=== PATIENT | male | born 1995 | race Caucasian/White ===

== ENCOUNTER 2025-04-25 10:22 | Outpatient (OUT) | payer BC, SELFPAY ==
--- NOTE | 2025-04-25 10:31 | US_ITS ---
The [address] [address] Patient Name: GAVINO PAL MRN: [id number] date: 1995 Sex: M Assigned Patient Location: US Current Patient Location: US Accession/Order Number: [id number] Exam Date: 04/25/2025 11:12 Report Date: 04/25/2025 11:18 At the request of: VINCENZO HERNANDEZ MD Procedure: US thyroid THYROID ULTRASOUND CLINICAL DATA: Neck lumps and difficulty swallowing COMPARISON: None The right thyroid lobe measures 5.8 x 2.1 x 1.1 cm. The left lobe measures 4.4 x 2.1 x 1.5 cm. The isthmus measures 2 - 3 mm . There is normal echogenicity. No thyroid nodularity is seen. Real-time ultrasound evaluation at the site of patient's lumps on both sides was also performed superior to the thyroid and lateral to the trachea. On the left in close proximity, there are 2 hypoechoic nodules measuring 6 x 6 x 4 mm and 7 x 4 x 4 mm. On the right in a similar location, there is a hypoechoic nodule measuring 6 x 4 x 5 mm. There might be subtle fatty ivy and these may be lymph nodes. No other neck masses are seen. US/US thyroid IMPRESSION: NO SIGNIFICANT THYROID FINDINGS. SUBCENTIMETER HYPOECHOIC NODULES IN THE AREAS OF PALPABLE CONCERN, POSSIBLY SMALL LYMPH NODES. Impression dictated by: Vania Lee M.D. 04/25/2025 11:18 AM Dictation Location: [place] [address] Electronically authenticated by: [id number] Y Date: 04/25/2025 11:18
== END 2025-04-25 10:23 | disposition home or self-care (01) ==
LOC: US 10:26
PROVIDERS: PCP Family Medicine; Visit Provider Family Medicine
DX: R22.1 Localized swelling, mass and lump, neck (principal)
CPT/HCPCS: 76536

== ENCOUNTER 2025-05-08 10:11 | Outpatient (OUT) | payer BC, SELFPAY ==
--- NOTE | 2025-05-08 10:14 | CT_ITS ---
The [address] [address] Patient Name: GAVINO PAL MRN: [id number] date: 1995 Sex: M Assigned Patient Location: CT Current Patient Location: CT Accession/Order Number: [id number] Exam Date: 05/08/2025 10:52 Report Date: 05/08/2025 11:01 At the request of: VINCENZO HERNANDEZ MD Procedure: CT soft tissue neck w con CT SOFT TISSUE NECK WITH CONTRAST COMPARISON: Thyroid ultrasound 04/25/2025 CLINICAL DATA: Neck lumps and difficulty swallowing. Suspected small lymph nodes on ultrasound. Spiral images were obtained through the neck following 100 mL of Omnipaque 300. This CT exam was performed using one or more following dose reduction techniques: Automated exposure control, adjustment of the mA and/or kV according to patient size, or use of iterative reconstruction technique. No thyroid nodularity is seen. The submandibular and parotid glands appear symmetric. There is no significant enlargement of the adenoids or tonsils. The epiglottis and vocal cords are within normal limits. There is subtle asymmetry at the right supraglottic region which may be physiologic. There is no prevertebral soft tissue swelling. The airway is patent throughout its course with normal appearance of the mucosal surfaces. There are small scattered cervical lymph nodes. The largest node is seen in the jugulodigastric region on the left with short axis dimension of 9 mm . The cervical spine shows no significant abnormalities. Polypoid mucosal thickening is visualized at the basilar left maxillary sinus. The remaining paranasal sinuses and mastoid air cells are clear. The upper imaged lungs show no contributory findings. CT/CT soft tissue neck w con IMPRESSION: SHOTTY CERVICAL LYMPH NODES, LARGEST IN THE LEFT JUGULODIGASTRIC REGION, DESCRIBED. NO OTHER ACUTE NECK FINDINGS. Impression dictated by: Vania Lee M.D. 05/08/2025 11:01 AM Dictation Location: [place] [address] Electronically authenticated by: [id number] Y Date: 05/08/2025 11:01
== END 2025-05-08 10:12 | disposition home or self-care (01) ==
LOC: CT 10:11
PROVIDERS: PCP Family Medicine; Visit Provider Family Medicine
DX: R22.1 Localized swelling, mass and lump, neck (principal)
CPT/HCPCS: 70491; Q9967

== ENCOUNTER 2025-08-31 16:50 | Outpatient (OUT) | payer BC, SELFPAY ==
--- OUTSIDE RECORDS SUMMARY | 2024-11-29 03:03 | XMS_ITS | Continuity of Care Document ---
Author Organization [facility] Address [address] [place] [address] Phone Care Team Providers Care Appointment Setter Name Role Phone Isela Murillo DDS Unavailable Unavailable Allergies, Adverse Reactions, Alerts Substance Reaction Status Criticality clarithromycin Active No Informatio n doxycycline Active No Information Procedures Procedure Date Extract; Erupted Th/exposted Rt 025 Oral Hygiene Instruction Intraoral-periapical 1st Film Bitewig-single Film Nutrit Couns For Control Of [place] Dis Aug Limited Oral Eval Advance Directives Directive Yes / No Effective Date File Name No Information Encounters Encounter Description Practice Location Reason(s) For Visit Diagnoses Date Provider Providers Copied on Encounter [facility], [address] [place] [address], [id number], tel:[phone] Dental Clinic Well child HPI (chief complaint) Encounter for screening for dental disorders Chidi BENITEZ Isela. . tel:[phone] [facility], [address] [place] [address], [id number], tel:[phone] Dental Clinic ER (chief complaint) Encounter for screening for dental disorders Chidi BENITEZ Isela. . tel:[phone] Family History Family Member Type Diagnosis Age At Onset No Information Payers Payer name Insurance type Covered constitution party ID Authoriza tion(s) Self Pay Cap [id number] Social History Type Description Quantity Date Captured Comments Alcohol Use Details Unknown Caffeine Use Details Unknown Tobacco Use Status No Information Smoking Status No Information Sex Male Sexual Orientation Straight or heterosexual Apr Gender Identity Male Vital Signs Date / Time: Height Weight BMI Pulse Rate Blood Pressure Temperature Respiratory Rate Body Surface Area Head Circumference Head Circ. Percentile Wt./Enrique. Percentile BMI percentile Pulse Ox Inhaled Ox 8:22 AM 70.00 in 112.219 kg (247.40 lbs) 35.5 0 kg/m eter (2) 80 /min 119/76 mm[Hg] 97.20 F Chief Complaint And Reason For Visit From encounter dated '11/29/2024 08:03'. Well child HPI (chief complaint). Description: EXT Reason For Referral Reason For Referral No Information Plan Of Treatment Date Type Action Status Goal Depression screening. Due on due Goal PRAPARE ASSESSMENT. Due on F due Goal RLP. Due on due Goal Hepatitis C screening. Due o n due Goal Tdap Vaccine. Due on 2024 due Goal Tdap. Due on due Goal Influenza vaccine. Due on due Goal Unhealthy drug use screening . Due on due Goal Influenza vaccine. Due on No due Goal RLP. Due on due Goal Hepatitis C screening. Due o n due Goal Depression screening. Due on due Goal PRAPARE ASSESSMENT. Due on N due Goal Tdap. Due on due Goal Tdap Vaccine. Due on 2023 due Goal Unhealthy drug use screening . Due on due History Of Present Illness Encounter Date Complaint History Of Prese nt Illness Well child HPI EXT ER Functional Status Date Functional Assessmen t No Information Instructions Date Instruction Additional Infor mation No Information Assessments Type Assessment Date No Information Patient Care Teams Name Effective Dates (start - stop) Status Members No Information
--- OUTSIDE RECORDS SUMMARY | 2024-11-29 03:03 | XMS_ITS | Continuity of Care Document ---
Author Organization [facility] Address [address] [place] [address] Phone Care Team Providers Care Press Service Reader Name Role Phone Isela Murillo DDS Unavailable Unavailable Allergies, Adverse Reactions, Alerts Substance Reaction Status Criticality clarithromycin Active No Informatio n doxycycline Active No Information Procedures Procedure Date Extract; Erupted Th/exposted Rt 025 Oral Hygiene Instruction Intraoral-periapical 1st Film Bitewig-single Film Nutrit Couns For Control Of [place] Dis Aug Limited Oral Eval Advance Directives Directive Yes / No Effective Date File Name No Information Encounters Encounter Description Practice Location Reason(s) For Visit Diagnoses Date Provider Providers Copied on Encounter [facility], [address] [place] [address], [id number], tel:[phone] Dental Clinic Well child HPI (chief complaint) Encounter for screening for dental disorders Chidi BENITEZ Isela. . tel:[phone] [facility], [address] [place] [address], [id number], tel:[phone] Dental Clinic ER (chief complaint) Encounter for screening for dental disorders Chidi BENITEZ Isela. . tel:[phone] Family History Family Member Type Diagnosis Age At Onset No Information Payers Payer name Insurance type Covered democrat ID Authoriza tion(s) Self Pay Cap [id number] Social History Type Description Quantity Date Captured [...]
--- OUTSIDE RECORDS SUMMARY | 2025-08-30 16:26 | XMS_ITS | Patient Health Record ---
Author Organization The [facility] [place] Address [address] [place] [address] Care Team Providers Care Outboard Motor Assembler Name Role Phone Inder Hernandez Primary Care Provider Allergies Allergen (clinical drug ingredient) Drug/Non Drug Allergy documented on EMR Reaction Allergy Type Onset Date Status BiaxinunknownDrug AllergyActivedoxycyclineDoxycyclineanaphylaxisDrug Allergy Active Results Component Value Reference Range Notes CT soft tissue neck w con Reviewed date:05/08/2025 08:52:55 PM Interpretation: Performing Lab: Notes/Report: Source Facility: [place] [address] CT Scan Report Signed Patient: RON PORTILLO MR#: [id number] : 1995 Acct:[id number] Age/Sex: 29 / M ADM Date: 05/08/25 Loc: CT Attending Dr: Malick Hernandez M.D. Ordering Physician: Malick Hernandez M.D. Date of Service: 05/08/25 Procedure(s): CT soft tissue neck w con Accession Number(s): [id number] cc: Malick Hernandez M.D. [place] [address] Patient Name: RON PORTILLO MRN: [id number] date: 1995 Sex: M Assigned Patient Location: CT Current Patient Location: CT Accession/Order Number: [id number] Exam Date: 05/08/2025 10:52 Report Date: 05/08/2025 11:01 At the request of: MALICK HERNANDEZ MD Procedure: CT soft tissue neck w con CT SOFT TISSUE NECK WITH CONTRAST COMPARISON: Thyroid ultrasound 04/25/2025 CLINICAL DATA: Neck lumps and difficulty swallowing. Suspected small lymph nodes on ultrasound. Spiral images were obtained through the neck following 100 mL of Omnipaque 300. This CT exam was performed using one or more following dose reduction techniques: Automated exposure control, adjustment of the mA and/or kV according to patient size, or use of iterative reconstruction technique. No thyroid nodularity is seen. The submandibular and parotid glands appear symmetric. There is no significant enlargement of the adenoids or tonsils. The epiglottis and vocal cords are within normal limits. There is subtle asymmetry at the right supraglottic region which may be physiologic. There is no prevertebral soft tissue swelling. The airway is patent throughout its course with normal appearance of the mucosal surfaces. There are small scattered cervical lymph nodes. The largest node is seen in the jugulodigastric region on the left with short axis dimension of 9 mm . The cervical spine shows no significant abnormalities. Polypoid mucosal thickening is visualized at the basilar left maxillary sinus. The remaining paranasal sinuses and mastoid air cells are clear. The upper imaged lungs show no contributory findings. CT/CT soft tissue neck w con IMPRESSION: SHOTTY CERVICAL LYMPH NODES, LARGEST IN THE LEFT JUGULODIGASTRIC REGION, DESCRIBED. NO OTHER ACUTE NECK FINDINGS. Impression dictated by: Vania Lee M.D. 05/08/2025 11:01 AM Dictation Location: [place] [address] Electronically authenticated by: [id number] Y Date: 05/08/2025 11:01 Dictated By: Vania Lee M.D. Signed By: 05/08/25 1103 DD/ 1101 TD/TT: Interactive Media Marketing Specialist: THYROID Reviewed date:04/25/2025 07:17:59 PM Interpretation: Performing Lab: Notes/Report: Source Facility: [facility]-[address] [place] [address] The [place] [id number] Ultrasound Report Signed Patient: RON PORTILLO MR#: [id number] : 1995 Acct:[id number] Age/Sex: 29 / M ADM Date: 04/25/25 Loc: US Attending Dr: Malick Hernandez M.D. Ordering Physician: Malick Hernandez M.D. Date of Service: 04/25/25 Procedure(s): US thyroid Accession Number(s): [id number] cc: Malick Hernandez M.D. [place] [address] Patient Name: RON PORTILLO MRN: [id number] date: 1995 Sex: M Assigned Patient Location: US Current Patient Location: US Accession/Order Number: [id number] Exam Date: 04/25/2025 11:12 Report Date: 04/25/2025 11:18 At the request of: MALICK HERNANDEZ MD Procedure: US thyroid THYROID ULTRASOUND CLINICAL DATA: Neck lumps and difficulty swallowing COMPARISON: None The right thyroid lobe measures 5.8 x 2.1 x 1.1 cm. The left lobe measures 4.4 x 2.1 x 1.5 cm. The isthmus measures 2 - 3 mm . There is normal echogenicity. No thyroid nodularity is seen. Real-time ultrasound evaluation at the site of patient's lumps on both sides was also performed superior to the thyroid and lateral to the trachea. On the left in close proximity, there are 2 hypoechoic nodules measuring 6 x 6 x 4 mm and 7 x 4 x 4 mm. On the right in a similar location, there is a hypoechoic nodule measuring 6 x 4 x 5 mm. There might be subtle fatty ivy and these may be lymph nodes. No other neck masses are seen. US/US thyroid IMPRESSION: NO SIGNIFICANT THYROID FINDINGS. SUBCENTIMETER HYPOECHOIC NODULES IN THE AREAS OF PALPABLE CONCERN, POSSIBLY SMALL LYMPH NODES. Impression dictated by: Vania Lee M.D. 04/25/2025 11:18 AM Dictation Location: [place] [address] Electronically authenticated by: [id number] Y Date: 04/25/2025 11:18 Dictated By: Vania Lee M.D. Signed By: 04/25/25 1120 DD/ 1118 TD/TT: Interactive Media Marketing Specialist: Reason For Referral No Information Medications Medication SIG (Take, Route, Frequency, Duration) Notes Start Date End Date Status Bactrim DS 800-160 MG 1 tablet Orally bid; Durat ion: 10 days 5ActivepredniSONE 20 MG2 tablets Orally Once a day; Duration: 5 days 5ActiveCefdinir 300 MG2 capsule Orally once a day; Duration: 10 days 5Active Social History Tobacco Use: Social History Observation Description Date Details (start date - stop date) Former Smoker 03/25/2012 - 01/23/2025 Tobacco Control (Standard) Question Answer Notes Tobacco use: Former smoker When did you start smoking?03/25/2012When did you stop smoking?01/23/2025UDIT-C (Standard) Question Answer Notes Did you have a drink containing alcohol in the p ast year? No Wyllfn9WpxdxkuzsivzuzPgdtutzh Problems Problem Type SNOMED Code ICD Code Onset Dates Problem Status W/U Status Risk Notes Problem Sleep apnea (92309037) Sleep apnea (G47.3 0) ActiveconfirmedProblemLeg pain (49985903)Leg pain (M79.606)Activeconfirmed ProblemCellulitis (353477380)Cellulitis (L03.90)ActiveconfirmedProblemMass of neck (712355075)Neck mass (R22.1)ActiveconfirmedProblemContact dermatitis (44679659)Contact dermatitis (L25.9)Activeconfirmed Vital Signs Blood pressure diastolic 60 mm Hg 06/11/2025 Xlihdi76 in06/11/2025lood pressure uxmhbceo011 mm Hg06/11/20255935Cgxncl482.4 lbs 06/11/2025BMI35.35 kg/m206/11/2025 Procedures Procedure Date Ordered Date Performed Result Body Sit e Sleep study - Diagnostic Polysonogram 04/13/2025 N/A Encounters Encounter Location Date Provider Diagnosis [facility] [address] [place] [address] 04/25/2025 Inder Hoy Neck mass R22.1 [facility] [address] [place] [address] 05/03/2025 Inder Hernandez Acute bronchitis, unspecified organism J20.9 [facility] [address] [place] [address] 05/08/2025 Inder Hoy [facility] [place] [address] 04/13/2025Doug HoyNeck mass R22.1 ; Leg pain M79.606 ; Sleep apnea G47.30 and Well adult Z00.00[facility] [place] [facility] [place] [address]/09/2025Doug HoyAcute bronchitis, unspecified organism J20.9 [facility] [place] [address] 06/11/2025Doug HoyCellulitis L03.90 and Contact dermatitis L25.9 Assessments Encounter Date Diagnosis (ICD Code) Assessment Notes Treatment Notes Treatment Clinical Notes Section Notes 04/13/2025 Neck mass (ICD-10 - R22.1) 04/13/2025Leg pain (ICD-10 - M79.606)05/02/2025ute bronchitis, unspecified organism (ICD-10 - J20.9)Rest and drink more liquids, especially water. You may use a humidifier or vaporizer to help keep the drainage moist. Uqvc-xlm-bsivzkv Nasal Saline may help the stuffy and runny nose. Use Ibuprofen and or Tylenol as needed for fever, chills, body aches or pain. Children 5 years old should not be given gvgj-ebl-evyxjwx cough and cold medications such as guaifenesin and dextromethorphan. If you're over age 5, you may try ymdl-xnz-ipesamn cold medications such as guaifenesin and dextromethorphan, or multi-symptom cold reliever such as Dayquil to help reduce the symptoms. Antibiotics have been pre scribed. You should take these until completed and follow the directions. Antibiotics can sometimescause upset stomach, and in rare cases, serious allergic reactions or serious gastrointestinal problems. If you start having severe abdominal pain, severe vomiting, or bloody diarrhea, you should be r eevaluated by your physician or urgent care immediately. Follow up with your Primary Care Provider or return to clinic if symptoms do not improve within 3-5 days. If you develop severe symptoms such as shortness of breath, repeated vomiting, coughing up blood, or chest pain you should go to the emergency room or call [phone] (ICD-10 - L03.90)06/11/2025ontact dermatitis (ICD-10 - L25.9)04/25/2025Neck mass (ICD-10 - R22.1)5Acute bronchitis, unspecified organism (ICD-10 - J20.9)04/13/2025Sleep apnea (ICD-10 - G47.30) 04/13/2025Well adult (ICD-10 - Z00.00) Plan Of Treatment Pending Test Test Name Order Date HEMOGLOBIN A1C (GLYCO) 04/13/2025 INSULIN, TOTAL 04/13/2025 LIPID PANEL (CHOL/TRIG/HDL/LDL) 04/13/20 25 URIC ACID 04/13/2025 Urinalysis Microscopic 04/13/2025 Sleep study - Diagnostic Polysonogram CHLAMYDIA AND GC (URINE, VAG, OR SWAB) - IH 04/13/2025 CULTURE URINE 04/13/2025 HEPATITIS PANEL, ACUTE 04/13/2025 HIV 1 AND 2 WITH REFLEX 04/13/2025 RPR QUANT 04/13/[address] W CON 04/25/2025 THYROID PANEL (T4/TSH/FREE T3) PSA, SCREENING 04/13/2025 US soft tissue head and neck 04/13/2025 CMP (COMP MET VILLALBA) w/eGFR CKD-EPI 2024 CBC WITH DIFF 04/13/2025 Insurance Providers Payer Name Payer Address Payer Phone Subscriber Number Group Number Insured Name Patient Relationship to Insured Coverage Start Date Coverage End Date [employer]THFAB BERNSTEIN [address] [place] [address] [id number] Jonatan Portillo - patient is the insured Medical (General) History Surgical History Surgery Date(Month/Year) I and right armpit Bilat knee surgery
--- OUTSIDE RECORDS SUMMARY | 2025-08-31 16:53 | XMS_ITS | Patient Health Record ---
Author Organization The [facility] [place] Address [address] [place] [address] Care Team Providers Care Paper Folding Machine Operator Name Role Phone Inder Hernandez Primary Care Provider Allergies Allergen (clinical drug ingredient) Drug/Non Drug Allergy documented on EMR Reaction Allergy Type Onset Date Status BiaxinunknownDrug AllergyActivedoxycyclineDoxycyclineanaphylaxisDrug Allergy Active Results Component Value Reference Range Notes CT soft tissue neck w con Reviewed date:05/08/2025 08:52:55 PM Interpretation: Performing Lab: Notes/Report: Source Facility: [place] [address] CT Scan Report Signed Patient: RON PORTILLO MR#: [id number] : 1995 Acct:[id number] Age/Sex: 29 / M ADM Date: 05/08/25 Loc: CT Attending Dr: Malick Hernandez M.D. Ordering Physician: Malick Hernandez M.D. Date of Service: 05/08/25 Procedure(s): CT soft tissue neck w con Accession Number(s): [id number] cc: Malick Hernandez M.D. [place] [address] Patient Name: RON PORTILLO MRN: [id number] date: 1995 Sex: M Assigned Patient Location: CT Current Patient Location: CT Accession/Order Number: [id number] Exam Date: 05/08/2025 10:52 Report Date: 05/08/2025 [...] Lee M.D. 05/08/2025 11:01 AM Dictation Location: [place] [address] Electronically authenticated by: [id number] Y Date: 05/08/2025 11:01 Dictated By: Vania Lee M.D. Signed By: 05/08/25 1103 DD/ 1101 TD/TT: Tax Commissioner: THYROID Reviewed date:04/25/2025 07:17:59 PM Interpretation: Performing Lab: Notes/Report: Source Facility: [facility]-[address] [place] [address] The [place] [id number] Ultrasound Report Signed Patient: RON PORTILLO MR#: [id number] : 1995 Acct:[id number] Age/Sex: 29 / M ADM Date: 04/25/25 Loc: US Attending Dr: Malick Hernandez M.D. Ordering Physician: Malick Hernandez M.D. Date of Service: 04/25/25 Procedure(s): US thyroid Accession Number(s): [id number] cc: Malick Hernandez M.D. [place] [address] Patient Name: RON PORTILLO MRN: [id number] date: 1995 Sex: M Assigned Patient Location: US Current Patient Location: US Accession/Order Number: [id number] Exam Date: 04/25/2025 11:12 Report Date: 04/25/2025 [...] Lee M.D. 04/25/2025 11:18 AM Dictation Location: [place] [address] Electronically authenticated by: [id number] Y Date: 04/25/2025 11:18 Dictated By: Vania Lee M.D. Signed By: 04/25/25 1120 DD/ 1118 TD/TT: Tax Commissioner: Reason For Referral No Information Medications Medication [...] alcohol in the p ast year? No Cctwkk5SgtzkukphmwmplSyspsbua Problems Problem Type SNOMED Code ICD Code Onset Dates Problem Status W/U Status Risk Notes Problem Sleep apnea (30181171) Sleep apnea (G47.3 0) ActiveconfirmedProblemLeg pain (36941754)Leg pain (M79.606)Activeconfirmed ProblemCellulitis (471266203)Cellulitis (L03.90)ActiveconfirmedProblemMass of neck (233969212)Neck mass (R22.1)ActiveconfirmedProblemContact dermatitis (73759720)Contact dermatitis (L25.9)Activeconfirmed Vital Signs Blood pressure diastolic 60 mm Hg 06/11/2025 Mvslye87 in06/11/2025lood pressure mm Hg06/11/20250270Nyujgw560.4 lbs 06/11/2025BMI35.35 kg/m206/11/2025 Procedures Procedure Date Ordered Date Performed Result Body Sit e Sleep study - Diagnostic Polysonogram 04/13/2025 N/A Encounters Encounter Location Date Provider Diagnosis [facility] [address] [place] [address] 04/25/2025 Inder Hoy Neck mass R22.[facility] [address] [place] [address] 05/03/2025 Inder Hernandez Acute bronchitis, unspecified organism J20.9 [facility] [address] [place] [address] 05/08/2025 Inder Hoy [facility] [place] [address] 04/13/2025Doug HoyNeck mass R22.1 ; Leg pain M79.606 ; Sleep apnea G47.30 and Well adult Z00.00[facility] [place] [address]/09/2025Doug HoyAcute bronchitis, unspecified organism J20.9 [facility] [place] [address] 06/11/2025Doug HoyCellulitis L03.90 and Contact dermatitis L25.9 Assessments Encounter Date Diagnosis (ICD Code) Assessment Notes Treatment Notes Treatment Clinical Notes Section Notes 04/13/2025 Neck mass (ICD-10 - R22.1) 04/13/2025Leg pain (ICD-10 - M79.606)05/02/2025ute bronchitis, unspecified organism (ICD-10 - J20.9)Rest and drink more liquids, especially water. You may use a humidifier or vaporizer to help keep the drainage moist. Hkex-rpj-fmckmad Nasal Saline may help the stuffy and runny nose. Use Ibuprofen and or Tylenol as needed for fever, chills, body aches or pain. Children 5 years old should not be given srax-drm-ifcvxrw cough and cold medications such as guaifenesin and dextromethorphan. If you're over age 5, you may try oryy-gag-zxswssg cold medications such as guaifenesin and dextromethorphan, [...] go to the emergency room or call 93753ellulitis (ICD-10 - L03.90)06/11/2025ontact dermatitis (ICD-10 - L25.9)04/25/2025Neck [...] Coverage End Date [employer]FAB [employer]ERNSTEIN [address] [place] [address] [id number] Jonatan Portillo - patient is the insured Medical (General) History Surgical History Surgery Date(Month/Year) I and right armpit Bilat knee surgery
[2025-08-31 17:22] LABS: Glucose Urine UA NEGATIVE (NEGATIVE)
[2025-08-31 17:23] LABS: Hematocrit 42.0 % (42.0-54.0); Hemoglobin 14.0 g/dL (14.0-18.0); Immature Granulocytes Abs Auto 0.02 10^3/uL (0.00-0.03); Immature Granulocytes Pct Auto 0.3 % (0.0-0.5); Lymphocytes Absolute Auto 2.3 10^3/uL (1.2-3.8); Mean Corpuscular HGB Conc 33.3 g/dL (29.9-35.2); Mean Corpuscular Hemoglobin 30.5 pg (25.9-34.0); Mean Corpuscular Volume 91.5 fL (80.0-94.0); Platelet Count 245 10^3/uL (150-450); Red Blood Count 4.59 10^6/uL (4.70-6.10); White Blood Count 6.8 10^3/uL (4.0-11.0)
[2025-08-31 17:42] LABS: Crystals Seen? None Seen #/HPF (None Seen)
[2025-08-31 17:43] LABS: Cast Seen? NONE SEEN #/LPF (NONE SEEN)
[2025-08-31 19:19] LABS: Alanine Aminotransferase 34 U/L (16-63); Albumin Globulin Ratio 1.2; Albumin Level 4.1 g/dL (3.4-5.0); Alkaline Phosphatase 74 U/L (46-116); Anion Gap 11.7; Aspartate Amino Transferase 19 U/L (15-37); Blood Urea Nitrogen 17.0 mg/dL (7.0-18.0); Calcium 9.0 mg/dL (8.5-10.1); Carbon Dioxide 27.0 mmol/L (21.0-32.0); Chloride 103 mmol/L (98-107); Cholesterol 171 mg/dL (<=200); Estimated GFR (African America >60 (>=60 mL/min/1.73m^2); Estimated GFR (Non-African Ame >60 (>=60 mL/min/1.73m^2); Free T3 3.20 pg/mL (2.18-3.98); Globulin 3.5 g/dL; Glucose 88 mg/dL (74-106); HDL Cholesterol 36 mg/dL (40-60); Potassium 3.7 mmol/L (3.5-5.1); Sodium 138 mmol/L (136-145); Thyroid Stimulating Hormone 1.763 uIU/mL (0.358-3.740); Total Protein 7.6 g/dL (6.4-8.2); Triglycerides 57 mg/dL (<=150); Uric Acid 6.0 mg/dL (3.5-7.2); VLDL CHOLESTEROL 11.4 mg/dL
[2025-09-02 14:08] LABS: Rapid Plasma Reagin, Quant Non Reactive titer (NonRea<1:1)
== END 2025-08-31 16:51 | disposition home or self-care (01) ==
LOC: LAB 16:50
PROVIDERS: PCP Family Medicine; Visit Provider Family Medicine
DX: Z00.00 Encounter for general adult medical examination without abnormal findings (principal); Z12.5 Encounter for screening for malignant neoplasm of prostate
CPT/HCPCS: 36415; 80053; 80061; 80074; 81001; 83036; 83525; 84436; 84443; 84481; 84550; 85025; 86592; 87086; 87389; G0103